=== PATIENT | female | born 1980 | race Caucasian/White ===

== ENCOUNTER 2018-09-29 12:45 | Outpatient (CLI) | payer OTHER ==
--- NOTE | 2018-09-29 15:01 | ULT ---
LIMITED RIGHT BREAST ULTRASOUND: Date: 09-29-18 Provided Clinical History: Right breast palpable abnormality at 7 o'clock. FINDINGS: Limited sonographic interrogation was performed of the right breast at the 6-7 o'clock position in th e region of reported palpable concern. The sonographic appearance of the breast tissue in this region is normal. IMPRESSION: BIRADS category 1 - negative. Negative imaging findings should not preclude further evaluation of the clinically suspicious area. The patient was referred back to her clinician. POS: OFF
== END 2018-09-29 12:46 | disposition home or self-care (01) ==
LOC: BICMAMMO 12:45
PROVIDERS: ATTEND Family Medicine
DX: N63.13 Unspecified lump in the right breast, lower outer quadrant (principal)
CPT/HCPCS: 77066; G0279